=== PATIENT | male | born 1950 | race Caucasian/White ===

== ENCOUNTER → 2017-11-28 14:35 | Outpatient (CLI) | payer OTHER, SELFPAY ==
--- NOTE | 2017-11-28 16:09 | RAD_ITS ---
STUDY: X-RAY - LEFT FOOT CLINICAL: Male, 67 years old. Ulceration of left heel TECHNIQUE: 3 view(s) of the foot. COMPARISON: March 26, 2015 FINDINGS: There is a 3.3 cm area of ulceration involving the left heel and a large 7 cm mass of soft tissue swelling of the dorsum of the forefoot. Vascular calcifications are seen in the soft tissues of the ankle and foot. There is a plantar calcaneal spur but no indication of fractures or osteomyelitis involving the os calcis.. There are findings suspicious of osteomyelitis involving the base of the proximal phalanx of the little toe and the medial aspect of the head of the fifth metatarsal bone. There are also changes of the heads of the fourth and third metatarsal bones suggestive of osteomyelitis. RAD/Foot min 3 Views IMPRESSION: Ulceration of the left heel but no indication of osteomyelitis in the adjacent os calcis. Severe soft tissue swelling of the dorsum of the forefoot with changes in the heads of the fifth fourth and third metatarsals and also the base of the proximal phalanx of the little toe which suggest osteomyelitis Electronically Signed: Zachary Pinzon, at 2:40 EDT Tel , Service support ,
[2017-11-28 16:39] LABS: Absolute Lymphocyte Count 0.75 X10^3/ul (0.83-4.51); Absolute Neutrophil Count 7.4 X10^3/uL (2.0-7.7); Basophil# 0.05 X10^3/uL; Basophil% 0.5 % (0-1); Eosinophil# 0.24 X10^3/uL; Eosinophils% 2.6 % (0-5); Hematocrit 35.9 % (40-54); Lymphocyte # 0.75 X10^3/ul (4.0); Mean Corp Hgb Conc 33.4 g/gl (32-36); Mean Corpuscular Hgb 30.5 pg (27.0-32.0); Mean Corpuscular Volume 91.1 fL (80-94); Mean Platelet Vol. 9.8 fl (6.2-12.0); Monocyte# 0.97 X10^3/uL; Monocyte% 10.3 % (0-10); Neutrophil # 7.38 X10^3/uL (2.7-7.7); Neutrophil % 78.4 % (47-70); Platelet Count 212 K/mm3 (150-450); RBC Distribution Width CV 12.9 % (11.6-14.6); RBC Distribution Width SD 41.6 fl (35.1-43.9); Red Blood Count 3.94 M/mm3 (4.6-6.2); White Blood Count 9.4 K/mm3 (4.4-11.0)
[2017-11-28 16:44] LABS: Hemoglobin A1c 8.8 % (4.2-6.3)
[2017-11-28 16:55] LABS: POSITIVE COUNT NO; POSITIVE DIFFERENTIAL NO; POSITIVE MORPHOLOGY NO
[2017-11-28 17:10] LABS: Erythrocyte Sedimentation Rate 25 mm/hr (0-20)
[2017-11-28 22:13] LABS: ALB/GLOB Ratio 0.8 RATIO (0.9-2.4); AST(SGOT) 18 U/L (15-37); Alanine Aminotransfer ALT/SGPT 25 U/L (16-61); Albumin, Serum 3.7 g/dL (3.2-5.0); Alkaline Phosphatase 123 U/L (45-117); Anion Gap 8 (5-15); BUN 26 mg/dL (7-18); BUN/Creat Ratio 8.2 RATIO (10-20); Calcium,Total 8.4 mg/dL (8.5-10.1); Chloride 94 mmol/L (98-107); Creatinine, Serum 3.19 mg/dL (0.70-1.30); EST Glomerular Filtration Rate 21 mL/min (>60); Est Glom Filt Rate - Afr Amer 25 mL/min (>60); Globulin 4.7 g/dL (2.2-4.2); Glucose 176 mg/dL (74-106); Potassium 4.4 mmol/L (3.5-5.1); Protein, Total 8.4 g/dL (6.4-8.2); Sodium Level 135 mmol/L (136-145)
== END ==
PROVIDERS: Visit Provider Podiatrist
DX: L97.429 Non-pressure chronic ulcer of left heel and midfoot with unspecified severity (principal)
CPT/HCPCS: 36415; 73630; 80053; 83036; 85025; 85652; 86140

== ENCOUNTER 2018-03-07 14:34 | Emergency (ER) | payer OTHER, MEDICARE, SELFPAY ==
[2018-03-07 14:36] VITALS: BP 143/76; PULSE 51; RESP 16; TEMP 36.7; O2SAT 99; BMI 42.0
--- NOTE | 2018-03-07 16:40 | ED.RN ---
SON OF PT STATES PT MISSED TUESDAY'S DIALYSIS AND HAS NOT TAKEN ANY INSULIN TODAY.
[2018-03-07 16:55] LABS: Absolute Lymphocyte Count 0.64 X10^3/ul (0.83-4.51); Absolute Neutrophil Count 5.4 X10^3/uL (2.0-7.7); Basophil# 0.01 X10^3/uL; Basophil% 0.1 % (0-1); Eosinophil# 0.28 X10^3/uL; Hematocrit 32.5 % (40-54); Hemoglobin 10.5 g/dl (13.0-16.5); Lymphocyte # 0.64 X10^3/ul (4.0); Mean Corp Hgb Conc 32.3 g/gl (32-36); Mean Corpuscular Hgb 28.8 pg (27.0-32.0); Mean Platelet Vol. 10.1 fl (6.2-12.0); Monocyte# 0.78 X10^3/uL; Neutrophil # 5.36 X10^3/uL (2.7-7.7); Neutrophil % 75.8 % (47-70); POSITIVE COUNT NO; POSITIVE DIFFERENTIAL NO; POSITIVE MORPHOLOGY NO; Platelet Count 123 K/mm3 (150-450); RBC Distribution Width CV 14.3 % (11.6-14.6); RBC Distribution Width SD 46.8 fl (35.1-43.9); Red Blood Count 3.65 M/mm3 (4.6-6.2); White Blood Count 7.1 K/mm3 (4.4-11.0)
[2018-03-07 17:01] VITALS: BP 153/85; PULSE 51; RESP 19; O2SAT 93
--- NOTE | 2018-03-07 17:08 | ED.RN ---
DR MCADAMS AT BEDSIDE. SUPPLIES PROVIDED THAT REQUESTED. CULTURES TO BE OBTAINED
[2018-03-07 17:12] LABS: Erythrocyte Sedimentation Rate 53 mm/hr (0-20)
--- NOTE | 2018-03-07 17:15 | RAD_ITS ---
STUDY: X-RAY - LEFT FOOT CLINICAL: Male, 67 years old. Left heel ulceration TECHNIQUE: 3 view(s) of the foot. COMPARISON: Prior study of October 29, 2017 FINDINGS: There is a plantar aspect calcaneal spur. Normal visualized subtalar, talonavicular, calcaneocuboid, tarsal and tarsometatarsal articulations. There are degenerative changes of the first metatarsal head. There are mild degenerative changes of the first metatarsophalangeal joint. Normal tibial and fibular sesamoid bones. Normal interphalangeal joint of the great toe. Normal phalanges of the great toe. Normal second through fifth metatarsophalangeal joints. Normal interphalangeal joints and phalanges of the lesser toes. Arterial calcifications are noted throughout the left foot and ankle. There is soft tissue swelling of the dorsum of the foot. There is no evidence of soft tissue gas or radiopaque foreign body. There appears to be a skin ulcer of the left heel. RAD/Foot min 3 Views IMPRESSION: 1. Plantar aspect calcaneal spur. 2. Degenerative changes of the first metatarsal head and first metatarsophalangeal joint. 3. Soft tissue vascular calcifications are present. 4. Soft tissue swelling of the dorsum of the foot. 5. There appears to be a skin ulcer of the left heel. 6. There is no evidence of osteomyelitis. Electronically Signed: Nakul Blakely MD at 17:36 EDT , Service support ,
[2018-03-07 17:26] LABS: Anion Gap 10 (5-15); BUN 83 mg/dL (7-18); BUN/Creat Ratio 13.9 RATIO (10-20); Chloride 96 mmol/L (98-107); Creatinine, Serum 5.96 mg/dL (0.70-1.30); EST Glomerular Filtration Rate 10 mL/min (>60); Est Glom Filt Rate - Afr Amer 12 mL/min (>60); Estimated Creatinine Clearance 13.56 ml/min; Glucose 295 mg/dL (74-106); Potassium 5.5 mmol/L (3.5-5.1); Sodium Level 132 mmol/L (136-145)
--- NOTE | 2018-03-07 17:33 | CON.PCM_ITS ---
Problem List (1) Chronic ulcer of left foot with fat layer exposed Status: Chronic (2) Left foot infection Status: Acute (3) Type 2 diabetes mellitus with diabetic polyneuropathy Status: Chronic (4) Edema, lower extremity Status: Chronic Reason for Consult Date of Consultation: 03/07/18 Reason for Consultation: Left heel ulcer History of Present Illness: The patient is a 67 year old M presented to the emergency room with concern of infection the left heel ulcer. This is chronic and has been present for several months. He has odor, increased drainage, and green discoloration per nursing staff who is been calling several times the past 2 weeks. The patient has not been able to get a ride to clinic or to the emergency facilities. He had a culture obtained last week which demonstrated gram-positive and gram-negative growth; no additional details were noted. He denies fever, chill, nausea, vomiting, loss of appetite or foot pain. He is with his son today. Past Medical History Past Medical History (Chronic Problems): Chronic Problems Chronic ulcer of left foot with fat layer exposed (Chronic) Type 2 diabetes mellitus with diabetic polyneuropathy (Chronic) Edema, lower extremity (Chronic) Lymphedema of leg (Chronic) Neuropathy due to type 2 diabetes mellitus (Chronic) Hypertension (Chronic) Aortic stenosis (Chronic) Poorly controlled type 2 diabetes mellitus with neuropathy (Chronic) Heel ulcer due to DM (Chronic) DM (diabetes mellitus), type 2 with renal complications (Chronic) ESRD (end stage renal disease) on dialysis (Chronic) Anemia due to chronic kidney disease (Chronic) Personal history of noncompliance with medical treatment and regimen (Chronic) Bilateral heel wounds (Chronic) Allergies Penicillins [PCN] Allergy (Verified 03/07/18 14:39) Swelling venom-honey bee [bee venom (honey bee)] Allergy (Verified 03/07/18 14:39) Swelling meperidine HCl [From Demerol] Adverse Reaction (Verified 03/07/18 17:26) anxiety anxiety Home Medications: Ambulatory Orders Medication Instructions Recorded Aspirin E.C. [Ecotrin] 81 mg PO DAILY@0800 10/16/14 Atorvastatin Calcium [Lipitor] 40 mg PO QHS 10/16/14 Gabapentin [Neurontin] 100 mg PO BID 10/16/14 Insulin Detemir [Levemir FlexPen] 42 units SC QHS #1 insuln.pen 10/09/15 Insulin Aspart [Novolog Flexpen] 20 units SC TIDAC 07/30/16 Meclizine HCl 25 mg PO DAILY 07/30/16 Clindamycin [Cleocin] 300 mg PO 4X/DAY #80 capsule 03/07/18 Furosemide [Lasix] 80 mg PO BID 03/07/18 Metoprolol Tartrate [Lopressor 12.5 mg PO BID 03/07/18 (beta kirstin)] Warfarin Sodium 5 mg PO DAILY 03/07/18 Surgical History: cataract - bilateral, cholecystectomy, tonsillectomy, - - Surgery for debridement of buttocks ulceration secondary to pressure ulceration Smoking Status: Former smoker - *Family History Maternal History Items: No pertinent history Paternal History Items: No pertinent history Sibling History Items: Diabetes Review of Systems Constitutional: Reports: Weakness. Denies: Chills, Fever Cardiovascular: Reports: Edema. Denies: Claudication Gastrointestinal: Denies: Nausea, Vomiting Musculoskeletal: Denies: Foot Pain, Joint Tenderness, Leg Pain Skin: Reports: Skin Changes, Wounds. Denies: Pruritis Neurological: Reports: Balance problems, Numbness, Tingling - Physical Exam General: Alert, Oriented x3, Cooperative Extremities: No cyanosis, Capillary Refill Less than 3 Seconds, No Calf Tenderness - Negative Richa and Glez sign bilateral, Edema - Moderate bilateral lower extremities unchanged from previous examinations Skin: Ulcer/ Wound - No erythema, streaking, no deep probing, no eschar. The wound bed is granular and fibrous and there is copious serous odorous drainage. There is no green discoloration noted today as reported previously however the dressing was removed prior to my evaluation. There is peripheral skin sloughing callusing and hyperkeratotic border noted. Musculoskeletal: No Tenderness to Palpation of Joints or Extremities, Muscle Wasting, - - No deep probing. No pain with manipulation plantar left heel. Neurological: - - lack of epicritic sensation via light touch bilateral lower extremities Psych/Mental Status: Normal Affect, Appropriate Vital Signs Temp Pulse Resp BP Pulse Ox 98.0 F 51 L 19 H 153/85 H 93 03/07/18 14:36 03/07/18 17:01 03/07/18 17:01 03/07/18 17:01 03/07/18 17:01 Oxygen Delivery Method Room Air Weight: 140.614 kg Body Mass Index (BMI) 42.0 Finger Stick Blood Glucose 145 Laboratory Tests Past 24 Hrs 03/07/18 03/07/18 16:34 16:34 WBC 7.1 RBC 3.65 L Hgb 10.5 L Hct 32.5 L MCV 89.0 MCH 28.8 MCHC 32.3 RDW 14.3 RDW Differential 46.8 H Plt Count 123 L MPV 10.1 Immature Gran % (Auto) 0.100 Neut % (Auto) 75.8 H Lymph % (Auto) 9.0 L Sargent % (Auto) 11.0 H Eos % (Auto) 4.0 Baso % (Auto) 0.1 Absolute Neuts (auto) 5.4 Absolute Lymphs (auto) 0.64 L Total Counted Not Reportable ESR 53 H Sodium 132 L Potassium 5.5 H Chloride 96 L Carbon Dioxide 26.0 Anion Gap 10 BUN 83 H Creatinine 5.96 H Estim Creat Clear Calc 13.56 Est GFR (MDRD) Af Amer 12 L Est GFR (MDRD) Non-Af 10 L BUN/Creatinine Ratio 13.9 Glucose 295 H Calcium 8.0 L C-React Prot Ext Range 15.70 H Assessment/Plan All Active Problems Left foot infection (Acute) Open wound of right lower leg (Acute) Cellulitis of foot excluding toe (Acute) Cellulitis and abscess of foot excluding toe (Acute) Left heel ulcer with fat exposed Infection left foot Diabetes with neuropathy Chronic kidney disease on hemodialysis Delayed healing Malnutrition suspected Noncompliance I reviewed and discussed his case. I have been contacted almost daily by his nurse for the past 2 weeks in regards to odor, green drainage, and concern for infection. His son was able to bring him to the emergency room for evaluation today as he was not able to come to clinic on several occasions. He denies systemic signs of illness at this time. There is an odor noted. There is no fluctuance or deep probing noted. There is no erythema noted. His labs and x- rays are pending. Deep wound cultures were taken after debridement including aerobic, anaerobic, and MRSA PCR. The ulcer site was debrided with a 15 blade excisionally to remove nonviable and devitalized subcutaneous tissue biofilm, fibrous tissue, and slough. The pre-debridement measurement was 2.6 x 5.3 x 0.2 cm and the post debridement measurement was 2.8 x 5.5 x 0.2 cm. Pressure was applied to maintain hemostasis. A dressing was applied. I recommend changing dressing daily with Dakin's gauze Kerlix and compression dressing. To keep pressure off the ulcer site by wearing offloading specialized shoe. Admission for IV antibiotics will be considered if his labs are significantly abnormal other than that I recommend discharge with at least oral antibiotics. His cultures from [facility] were reviewed in the outpatient setting and demonstrated gram-negative and gram-positive growth and there was no other information is available as of earlier today. Roseann Dominguez DPM, FAC[facility] [phone]
[2018-03-07 17:35] LABS: Bedside Glucose 277 mg/dL (70-110)
[2018-03-07 17:37] VITALS: BP 153/80; PULSE 51; RESP 20; O2SAT 93
[2018-03-07 18:39] VITALS: BP 159/83; PULSE 50; RESP 14; O2SAT 93
--- NOTE | 2018-03-07 18:45 | ED.DCSUM_ITS ---
- ER Visit Summary Date of Service: 03/07/18 Chief Complaint: Left foot infection History of Present Illness: The patient is a 67 M with long-standing left heel ulcer. Patient has dressing changes 3 times a week at home. He is not currently on antibiotic. He was advised by Dr. Dominguez to go to the ER today. He did miss his dialysis yesterday as transport was not running due to . He denies fever or chills. There has been mild drainage from his left heel wound. Physical Examination: Vital signs are unremarkable. He is afebrile. Patient sitting upright in bed no acute distress. Head neck examination normal. Heart is bradycardic and regular. Lung sounds clear. He has left upper chest dialysis catheter in place. Abdomen is soft and nontender. Left lower extremity examination was a 4 x 3 cm area of ulceration to the bottom of left heel with a deeper 1 x 2 cm wound. There is minimal drainage at this time. Clean wound edges are noted. No sign of cellulitis. Test Results: Left foot x-rays reveal plantar spur. Soft tissue swelling is noted. There is evidence of skin ulceration of the left heel. No evidence of osteomyelitis. CBC was normal white count 7.1 with 75% neutrophils. Platelet count is 123,000. Chemistry studies reveal BUN of 83 and a creatinine of 5.96. His glucose is 295. Potassium is 5.5. Sed rate is 53 and his CRP is 15.7. Emergency Department Course and Treatment: Dr. Dominguez presented to the emergency room to evaluate the patient. She obtained wound cultures and dressed the wound. Test results were discussed with her by telephone. Patient be discharged home on clindamycin and is to follow-up in the wound clinic. Treatment Plan: [] Disposition: Discharge Impression: Chronic left heel ulcer This note was generated with [employer] dictation software. It may contain incorrect words, spelling, and punctuation that were not noted in review of the chart prior to signing ED Disposition - Plan for ED Patient: Disposition: Home or Assisted Living Chief Complaint: Wound Instructions: ED Wound Care Prescriptions: Clindamycin [Cleocin] 300 mg PO 4X/DAY #80 capsule Referrals: Roseann Dominguez DPM [STAFF PHYSICIAN] -
--- NOTE | 2018-03-07 18:48 | DCINST.ED_ITS ---
ED Disposition - Plan for ED Patient: Disposition: Home or Assisted Living Chief Complaint: Wound Instructions: ED Wound Care Prescriptions: Clindamycin [Cleocin] 300 mg PO 4X/DAY #80 capsule Referrals: Roseann Dominguez DPM [STAFF PHYSICIAN] -
[2018-03-07 19:53] VITALS: BP 155/74; PULSE 51; RESP 16; O2SAT 95
== END 2018-03-07 19:54 | disposition home or self-care (01) ==
PROVIDERS: Emergency Provider Emergency Medicine
DX: E11.621 Type 2 diabetes mellitus with foot ulcer (principal); L97.422 Non-pressure chronic ulcer of left heel and midfoot with fat layer exposed; L03.116 Cellulitis of left lower limb; B96.89 Other specified bacterial agents as the cause of diseases classified elsewhere; E11.42 Type 2 diabetes mellitus with diabetic polyneuropathy; I12.0 Hypertensive chronic kidney disease with stage 5 chronic kidney disease or end stage renal disease; E11.22 Type 2 diabetes mellitus with diabetic chronic kidney disease; E11.65 Type 2 diabetes mellitus with hyperglycemia; N18.6 End stage renal disease; Z99.2 Dependence on renal dialysis; D63.1 Anemia in chronic kidney disease; I89.0 Lymphedema, not elsewhere classified; I35.0 Nonrheumatic aortic (valve) stenosis; E66.9 Obesity, unspecified; Z68.41 Body mass index [BMI] 40.0-44.9, adult; Z79.4 Long term (current) use of insulin; Z79.01 Long term (current) use of anticoagulants; Z79.82 Long term (current) use of aspirin; Z79.899 Other long term (current) drug therapy; Z87.891 Personal history of nicotine dependence; Z91.19 Patient's noncompliance with other medical treatment and regimen
CPT/HCPCS: 11042; 73630; 80048; 82962; 85025; 85652; 86140; 87040; 87070; 87075; 87077; 87186; 87205; 96365; 99283; J7050; A4216